=== PATIENT | male | born 1970 | race Caucasian/White ===

== ENCOUNTER 2020-09-29 13:26 | Outpatient (REF) | payer MEDICAID, SELFPAY | END 2020-09-29 13:27 | disposition home or self-care (01) | LOC: HO.LAB 13:26 | PROVIDERS: Visit Provider Internal Medicine | DX: Z20.822 Contact with and (suspected) exposure to COVID-19 (principal) | CPT/HCPCS: 36415; C9803; U0003; U0005 ==

== ENCOUNTER 2020-11-01 09:49 | Outpatient (REF) | payer MEDICAID, SELFPAY ==
[2020-11-01 10:54] LABS: MANUAL DIFF FLAG NO
[2020-11-01 11:07] LABS: Basophils Percent Auto 0.6 % (0-2); Eosinophils Absolute Auto 0.3 X10*3/uL (0.0-0.4); Eosinophils Percent Auto 3.9 % (0-4); Hematocrit 40.9 % (42-52); Hemoglobin 13.2 g/dl (14.0-18.0); Imm Gran Abs Auto 0.02 X10*3/uL (0.00-0.03); Imm Gran Pct Auto 0.3 % (0.0-0.4); Lymphocytes Absolute Auto 1.8 X10*3/uL (1.2-4.9); Lymphocytes Percent Auto 26.6 % (20-40); Mean Corpuscular HGB Conc 32.3 g/dl (31.0-36.0); Mean Corpuscular Hemoglobin 32.4 pg (27.0-33.0); Mean Corpuscular Volume 100.2 fL (80-98); Mean Platelet Volume 10.3 fL (9.4-12.4); Monocytes Absolute Auto 0.6 X10*3/uL (0.1-1.2); Neutrophils Absolute Auto 4.1 X10*3/uL (2.0-8.3); Neutrophils Percent Auto 59.6 % (45-73); Platelet Count 215 X10*3/uL (160-400); Red Blood Count 4.08 X10*6/uL (4.60-5.80); Red Cell Distribution Width 13.5 % (11.0-16.0); White Blood Count 6.9 X10*3/uL (4.8-10.8)
[2020-11-01 11:36] LABS: Alanine Aminotransferase 8 U/L (0-40); Alkaline Phosphatase 96 U/L (39-117); Anion Gap 10 (12-20); Aspartate Amino Transferase 20 U/L (5-37); Bilirubin Total 0.5 mg/dL (0.0-1.0); Blood Urea Nitrogen 11 mg/dL (9-16); Calcium 8.8 mg/dL (8.4-10.2); Carbon Dioxide 28 mmol/L (22-29); Chloride 106 mmol/L (96-108); Estimated Glomerular Filt Rate > 60; Glucose Random 92 mg/dL (60-115); Potassium 4.2 mmol/L (3.3-5.1); Sodium 140 mmol/L (135-145)
[2020-11-02 14:51] LABS: HCV Log PCR <1.18 NOT DETECTED Log IU/mL (NOT DETECTED); HepC Viral Load <15 NOT DETECTED IU/mL (NOT DETECTED)
[2020-11-03 04:14] LABS: Syphilis Screen Nonreactive (Nonreactive)
[2020-11-03 16:12] LABS: Absolute CD3 Count 1363 cells/uL (840-3060); Absolute CD4 Count 148 cells/uL (490-1740); Absolute CD8 Count 1202 cells/uL (180-1170); Absolute Lymphocytes 1877 cells/uL (850-3900); CD4 CD8 Ratio 0.12 (0.86-5.00); Percent CD3 Cells 73 % (57-85); Percent CD4 Cells 8 % (30-61); Percent CD8 Cells 64 % (12-42)
[2020-11-04 12:16] LABS: HIV RNA PCR Qn Copies 94 copies/mL (NOT DETECTED); HIV RNA PCR Qn Log Copies 1.97 (NOT DETECTED)
[2020-11-17 14:12] LABS: HIV Genotype DETECTED
[2020-11-24 15:18] LABS: Value of Last HIV Viral Load 94
== END 2020-11-01 09:50 | disposition home or self-care (01) ==
LOC: HO.LAB 09:49
PROVIDERS: PCP Internal Medicine; Visit Provider Internal Medicine
DX: B20 Human immunodeficiency virus [HIV] disease (principal)
CPT/HCPCS: 36415; 80053; 85025; 86359; 86360; 86780; 87522; 87536; 87900; 87901; 87906

== ENCOUNTER 2020-12-17 08:06 | Emergency (ER) | payer MEDICAID, SELFPAY ==
--- NOTE | ~2020-12-17 | XR_ITS ---
EXAMINATION: XR LUMBOSACRAL SPINE CLINICAL INFORMATION: Status post fall with lower left back pain COMPARISON: June 15, 2019 and February 07, 2019 TECHNIQUE: Three views of the lumbosacral spine. FINDINGS: There are 5 nonrib bearing lumbar vertebra. No acute fracture, spondylolisthesis, or spondylolysis is identified. Disc spaces are maintained. Pedicles intact. No significant sacroiliac joint abnormality is seen. XR/XR lumbar spine 2-3V IMPRESSION: No significant bony abnormality of the lumbar spine identified.
[2020-12-17 08:29] VITALS: BP 129/77; PULSE 78; RESP 16; TEMP 36.8; O2SAT 99; BMI 18.3
--- NOTE | 2020-12-17 10:10 | ED.BACK ---
HPI - Back Pain/Injury General Chief Complaint: Back Pain/Injury Stated Complaint: back pain - fall work related Time Seen by Provider: 12/17/20 08:50 Source: patient Mode of arrival: ambulatory Limitations: no limitations History of Present Illness HPI Narrative: 50-year-old male presenting to the ED with complaints of left lower back pain after he had a mechanical fall yesterday at work landing on cement. Denies head injury or loss of consciousness. MD elicited complaint: back pain, back injury and fall Pertinent past history: recent trauma Onset (ago): day(s) (Yesterday) Timing: constant Severity: moderate Similar Symptoms Previously: No Quality: aching Location: lumbar spine and left lower back Radiation: none Exacerbating factors: movement Relieving factors: none Context: fall Associated symptoms: denies other symptoms Work related injury: Yes Related Data Previous Rx's Medication Instructions Recorded cyclobenzaprine 10 mg PO Q8H #10 tab 12/17/20 naproxen 500 mg PO BID PRN #10 tab 12/17/20 Allergies Allergy/AdvReac Type Severity Reaction Status Date / Time No Known Allergies Allergy Verified 12/17/20 08:29 Review of Systems Review of Systems: Constitutional : No trauma, No Weight loss, No Fever, No Chills, ENT/Mouth : No Hearing loss, No Ear Pain, No Nasal Congestion, No Sinus Pain, No Hoarseness, No sore throat, No Rhinorrhea, No Swallowing Difficulty Cardiovascular : No Chest Pain, No SOB Respiratory : No Cough, No Dyspnea Gastrointestinal : No Nausea, No Vomiting, No Diarrhea, No abdominal Pain, No Hematochezia, No Melena Genitourinary : No Dysuria, No Urinary Frequency, No Hematuria, No Urinary or Bowel Incontinence/retention Musculoskeletal : + Back pain/back injury, No neck pain, No joint stiffness, No joint swelling Skin : No Skin Lesions, No rash or signs of infection Neuro : No Weakness, No radiation, No Numbness, No Paresthesias, No headache, no loss of bowel or bladder incontinence, no saddle anesthesia, Focal weakness, No radiation Denies history of IV drug usage. Yes all other systems are reviewed and are negative PMFSH Past Medical History Attestation statement: The following information was validated with the patient. Medical History No known health problems Social History Social History Advance Directives: Yes Advance Directives Information Provided: Yes Advance Directives on File: No Physical Exam Vital Signs: Vital Signs: Last Vital Signs Temp 98.3 F 12/17/20 08:29 Pulse 78 12/17/20 08:29 Resp 16 12/17/20 08:29 BP 129/77 12/17/20 08:29 Pulse Ox 99 12/17/20 08:29 Body Mass Index 18.3 vital signs have been reviewed as normal and appeared to be correct. Blood pressure normal. Heart rate normal. Respiration rate normal. Temperature normal. Oxygen saturation normal. Appearance: Alert. Oriented X3. No acute distress. Head: Normal external exam. Normocephalic. Atraumatic. No Rosales signs noted. No raccoon eyes noted Eyes: PERRLA. EOMI. Conjunctiva and sclera normal. Eyelids normal. ENT: EAC normal. TM's Normal. Pharynx normal. Uvula midline. Moist mucous membranes. No trismus noted. No drooling noted. No muffled voice noted. Neck: Normal inspection. Neck supple. FROM. No adenopathy. Thyroid Normal. No meningeal signs. No neck mass noted. CVS: Normal heart rate and rhythm. Heart sound normal. No murmurs noted. Pulses normal throughout. Respiratory: No respiratory distress. Painless inspiration. Breath sounds normal. No wheezes/rales/rhonchi noted. Chest nontender. No accessory muscle usage noted or decreased air movement noted. Abdomen: Soft and nontender. Bowel sounds normal in all 4 quadrants. No distention noted. No organomegaly noted. No visible injury noted. Back: No CVA tenderness. Full range of motion noted. No obvious deformities, or edema. Mild para-spinal muscular tenderness from lumbar region to coccyx. Full ROM in back and lower extremities. 5/5 strength hip extension/flexion, abduction, adduction. Mild Lumbar pain with hip flexion against resistance. Straight leg raise test negative on right; Straight leg raise test negative on left; Reflexes normal ankle and knee bilaterally; EHL motor strength normal bilaterally. No rashes/lesion/induration/fluctuance or signs infection noted. Skin: Skin warm and dry. Normal skin color. Normal skin turgor. No rashes/lesions/lacerations noted. Extremities: No lower extremity edema. Extremities exhibit normal range of motion. Extremities nontender. Neuro: Oriented X 3. No motor deficit. No sensory deficit. Reflexes normal. Patient has a normal steady gait. Course Course Course Narrative: Pt c likely muscular pain, but could be herniated disc. Neuro exam shows no deficits. Not c/w AAA/epidural abscess/dissection.No high risk Hx (Incont, fever, immunosupp, recent surgery/LP, coag, wt loss, puls mass, hx/o Ca, TB, or IVDU) to warrant MRI today. Although due to recent fall/trauma will obtain x-rays of lumbar spine to evaluate for any fractures. Not c/w Pyelo/UTI/kidney stone. Not cauda equina syndrome. If imaging negative will DC home with symptomatic treatment along with instructions to return if any new or worsening symptoms to follow up with PCP/Work [facility]. Patient understands agrees with this plan. MDM - Back Pain/Injury Medical Records Attestation: I reviewed the patient's medical records. Imaging Data X-ray of lumbar spine: Attestation: I personally reviewed and interpreted this imaging study as follows: Radiologist's impression: FINDINGS: There are 5 nonrib bearing lumbar vertebra. No acute fracture, spondylolisthesis, or spondylolysis is identified. Disc spaces are maintained. Pedicles intact. No significant sacroiliac joint abnormality is seen. XR/XR lumbar spine 2-3V IMPRESSION: No significant bony abnormality of the lumbar spine identified. Discharge Plan Discharge Clinical Impression: Strain of lumbar region, Fall, Work related injury Patient Disposition: Home, Self-Care Instructions: Low Back Strain (ED), Return to Work Instructions (ED), Lower Back Exercises (ED) Prescriptions: New cyclobenzaprine 10 mg tablet 10 mg PO Q8H Qty: 10 RF: 0 naproxen 500 mg tablet 500 mg PO BID PRN (Reason: pain) Qty: 10 RF: 0 Referrals: [facility] [Provider Group] - 1 day (Follow-up today or tomorrow with work connection to return back to work) Stand Alone Forms: Work/School Release Print Language: Gambian
[2020-12-17] MEDS: Cyclobenzaprine HCl 10 MG TABLET PO (10:30)
[2020-12-17] MEDS: oxyCODONE HCl Immed Release 5 MG TABLET PO (10:30)
[2020-12-17] MEDS: NaPROXEN 500 MG TABLET PO (10:30)
--- NOTE | 2020-12-17 10:38 | PC.NURSE ---
RETURNED FROM IMAGING, AMBULATING W/O ISSUE IN [facility] ROOM 3. MEDICATED PER EMAR, TOLERATING PO W/O ISSUE.
== END 2020-12-17 11:27 | disposition home or self-care (01) ==
PROVIDERS: Emergency Provider Emergency Medicine; PCP Internal Medicine
DX: S39.012A Strain of muscle, fascia and tendon of lower back, initial encounter (principal); W01.0XXA Fall on same level from slipping, tripping and stumbling without subsequent striking against object, initial encounter; Y93.89 Activity, other specified; Y92.63 Factory as the place of occurrence of the external cause; Y99.0 Civilian activity done for income or pay
CPT/HCPCS: 72100; 99283

== ENCOUNTER 2021-05-11 10:01 | Outpatient (REF) | payer MEDICAID, SELFPAY | END 2021-05-11 10:02 | disposition home or self-care (01) | LOC: HO.LAB 10:01 | PROVIDERS: PCP Internal Medicine; Visit Provider Internal Medicine | DX: Z20.822 Contact with and (suspected) exposure to COVID-19 (principal) | CPT/HCPCS: C9803; U0003; U0005 ==

== ENCOUNTER 2021-08-13 09:57 | Outpatient (REF) | payer MEDICAID, SELFPAY ==
--- NOTE | 2021-08-13 16:47 | MHC.AU.ANR ---
Adult Audiological Evaluation Date of Visit: 08/13/21 Reason for Appointment: Audiological evaluation due to concern for decreased hearing and tinnitus. He notes difficulties hearing in most situations, has to turn the TV up, and notes that he often asks for repetition. He reports tinnitus bilaterally, which he notices more at night when it's quiet. He describes that tinnitus as the sound of a chainsaw and feels it is worse in his left ear. 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 He notes that he wears foam earplugs when at work. Does patient feel they have a hearing loss?: Yes If Yes, Which Ear?: Both Ears When Was Hearing Difficulty First Noticed?: A few years ago Has hearing been tested previously?: Yes Previous Hearing Test Results: Notes he had his hearing tested ~15 years ago, but does not remember results Hearing Handicap Inventory: HHIE SCORE: 40 Based on HHIE score, patient has: Severe perceived hearing handicap Ear History: Recent Ear Pain: Both Ears Family History of Hearing Loss?: Yes: Mother Bothersome Tinnitus/Ringing/Noises in Ears: Both Ears Medical History: Medical History: HIV, Headache, Tobacco Use, Opioid dependence, arthralgia Medication List: Biktarvy [id number] daily, Sublocade 300mg/1.5mL injection monthly, Narcan 4mg/actuation PRN, Sublocade 100mg/0.5mL monthly, Seroquel 50 mg daily, Wellbutrin XL 150 mg daily, Nicotine patch, ibuprofen 800 mg 3x daily Otoscopy: Right Ear: Unremarkable Left Ear: Unremarkable Tympanometry: Tympanometry performed due to: Right Ear: Could Not Obtain Seal Left Ear: Could Not Obtain Seal Hearing Evaluation: Transducer(s) Used: Insert Earphones, Bone Conduction Method: Conventional Audiometry Stimuli Used: Pure Tones Right Ear: Description of Hearing: Mild sloping to severe sensorineural hearing loss from 250-8000 Hz. Right ear is worse than the left ear by 15 dBHL at 6000 Hz and 25 dBHL at 8000 Hz. Left Ear: Description of Hearing: Mild sloping to moderately-severe sensorineural hearing loss from 250-8000 Hz. Left ear is worse than the right ear by 10 dBHL at 500 Hz and 15 dBHL at 1000 Hz. Speech Recognition Threshold (SRT): Method Used: Monitored Live Voice Stimuli Used: Spondee Words Right Ear: 45 dBHL Left Ear: 50 dBHL Word Discrimination: Method: Recorded Lists Word Lists Used: NU-6 Right Ear: 84% at 85 dBHL Left Ear: 76% at 90 dBHL Recommendations: Audiological re-evaluation in one year. Trial with amplification is recommended. Medical clearance from a physician is required before fitting. Hearing Aid Fitting will be scheduled when all materials arrive. Mr. Braswell is interested in pursuing hearing aids. Discussed hearing aid options and he indicated that he is interested in recharge ITE style hearing aids. Hearing aids will be ordered once MD clearance is received. Diagnosis: Primary Diagnosis: H90.3 Bilateral Sensorineural Hearing Loss Secondary Diagnosis: H93.13 Tinnitus, Bilateral Services Performed: Services Performed: Comprehensive Audiological Evaluation (CPT 29941) Signature: Provider: Harriet Schroeder, CCC-A
--- NOTE | 2021-08-13 16:50 | MHC.AU.HAS ---
Hearing Aid Evaluation Date of Visit: 08/13/21 Historical Information: Description of Hearing: Mild sloping to moderately-severe/severe sensorineural hearing loss. Current personal amplification information, if applicable: None Summary: Based on the results of today's audiogram, binaural hearing aid use is recommended in order to facilitate improved communication. Discussed hearing styles, options, and technologies. He is interested in rechargeable ITE style hearing aids. Discussed that with his current LG cell phone he will not be able to utilize the Bluetooth capabilities with the Andrez rechargeable aids. He was fine with this and would prefer the rechargeable option over Bluetooth. Hearing Aid Prescription: Based on the individual?s shared listening needs, communication environments, dexterity, desire for connectivity, and personal preferences, the following prescription for amplification has been made: Right ear: Silk Spreader: FileHold Document Management software Model: Evolv AI 1600 ITC-R Battery Size: Rechargeable Color: [place] Left ear: Left ear prescription to be same as Right Hearing Aid above: Silk Spreader: Andrez Model: Evolv AI 1600 ITC-R Battery Size: Rechargeable Color: [place] Plan of Care: Earmold Impressions Taken. Medical Clearance to be requested from PCP/ENT. Hearing Instrument Fitting to be scheduled when materials arrive. Hearing aids will be ordered once MD clearance is received. Primary Diagnosis: H90.3 Bilateral Sensorineural Hearing Loss Secondary Diagnosis: H93.13 Tinnitus, Bilateral Signature: Provider: Harriet Schroeder, CCC-A
--- NOTE | 2021-08-13 16:51 | MHC.AU.MED ---
Medical Clearance for Hearing Instrumentation Date: 08/13/21 Patient Name: Rodriguez Braswell Date of : 1970 Referring Provider: Mary Shah MD We have seen your patient on 08/13/21 and have determined that they are a candidate for amplification (See accompanying report). Specifically, they would benefit from: Hearing aid use in both ears There is a statute that addresses Medical Evaluation Requirements prior to fitting a patient with a hearing aid. According to [place] statute 265 CMR:6.03(1), (a) General. Except as provided in 265 CMR 6.03(1)(b), a reformatory attendant shall not sell a hearing aid unless the prospective user has presented to the reformatory attendant a written statement signed by a licensed physician that states that the patient's hearing loss has been medically evaluated and the patient may be considered a candidate for a hearing aid. The medical evaluation must have taken place within the preceding six months. Please note: Due to the [place] Statute referenced above, we cannot accept a signature other than that of a licensed physician. SENIOR INTERIOR DESIGNER and PA signatures cannot be accepted. I am in agreement with the above recommendation. There is no medical contraindication for hearing instrumentation. Physician Signature Date Physician Name (Printed)
== END 2021-08-13 09:58 | disposition home or self-care (01) ==
LOC: HO.SH 09:57
PROVIDERS: Visit Provider Internal Medicine
DX: Z46.1 Encounter for fitting and adjustment of hearing aid (principal); H90.3 Sensorineural hearing loss, bilateral; H93.13 Tinnitus, bilateral
CPT/HCPCS: 92557; 92591; V5275

== ENCOUNTER 2021-10-01 09:32 | Outpatient (REF) | payer MEDICAID, SELFPAY ==
--- NOTE | ~2021-10-01 | XR_ITS ---
EXAMINATION: XR HAND, RIGHT XR HAND, LEFT CLINICAL INFORMATION: Bilateral hand pain. COMPARISON: Right hand and wrist radiographs dated 04/13/2013 and 04/12/2013. TECHNIQUE: AP, oblique, and lateral views of the right and left hand. FINDINGS: RIGHT HAND: Healed distal 5th metacarpal fracture. No acute fracture or dislocation. No joint space narrowing or marginal osteophytes. No osseous erosion. No perihardware lucency. No abnormal soft tissue calcification. LEFT HAND: No acute fracture or dislocation. Normal carpal alignment. No joint space narrowing or marginal osteophytes. No osseous erosion. No periarticular osteopenia. No abnormal soft tissue calcification. XR/XR hand RT min 3V IMPRESSION: Right hand: No acute osseous abnormality. Healed distal 5th metacarpal fracture. Left hand: Unremarkable examination.
--- NOTE | ~2021-10-01 | XR_ITS ---
EXAMINATION: XR HAND, RIGHT XR HAND, LEFT CLINICAL INFORMATION: Bilateral hand pain. COMPARISON: Right hand and wrist radiographs dated 04/13/2013 and 04/12/2013. TECHNIQUE: AP, oblique, and lateral views of the right and left hand. FINDINGS: RIGHT HAND: Healed distal 5th metacarpal fracture. No acute fracture or dislocation. No joint space narrowing or marginal osteophytes. No osseous erosion. No perihardware lucency. No abnormal soft tissue calcification. LEFT HAND: No acute fracture or dislocation. Normal carpal alignment. No joint space narrowing or marginal osteophytes. No osseous erosion. No periarticular osteopenia. No abnormal soft tissue calcification. XR/XR hand LT min 3V IMPRESSION: Right hand: No acute osseous abnormality. Healed distal 5th metacarpal fracture. Left hand: Unremarkable examination.
== END 2021-10-01 09:33 | disposition home or self-care (01) ==
LOC: HO.XRAY 09:32
PROVIDERS: Absent Provider Internal Medicine; PCP Internal Medicine; Visit Provider Emergency Medicine
DX: M79.641 Pain in right hand (principal); M79.642 Pain in left hand
CPT/HCPCS: 73130

== ENCOUNTER 2021-11-04 08:35 | Outpatient (REF) | payer MEDICAID, SELFPAY | END 2021-11-04 08:36 | disposition home or self-care (01) | LOC: HO.HAP 08:35 | PROVIDERS: Visit Provider Internal Medicine | DX: Z46.1 Encounter for fitting and adjustment of hearing aid (principal); H90.3 Sensorineural hearing loss, bilateral; H93.13 Tinnitus, bilateral | CPT/HCPCS: V5011; V5020; V5160; V5260 ==

== ENCOUNTER → 2021-11-18 10:49 | Outpatient (BNVA) | payer MEDICAID, SELFPAY | PROVIDERS: PCP Internal Medicine; Visit Provider Physician Assistant | DX: G56.03 Carpal tunnel syndrome, bilateral upper limbs (principal); M77.8 Other enthesopathies, not elsewhere classified | CPT/HCPCS: 99202 ==

== ENCOUNTER 2021-11-25 09:24 | Outpatient (REF) | payer MEDICAID, SELFPAY | END 2021-11-25 09:25 | disposition home or self-care (01) | LOC: HO.HAP 09:24 | PROVIDERS: Visit Provider Internal Medicine | DX: Z13.89 Encounter for screening for other disorder (principal) ==

== ENCOUNTER 2021-12-15 09:35 | Outpatient (RCR) | payer MEDICAID, SELFPAY ==
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
--- NOTE | 2022-01-05 09:41 | MHC.OT.DC ---
[address] [phone] F: [phone] Occupational Therapy Discharge Note Provider: Jamaal Kwon PA-C Diagnosis: B/L Hand Pain Date of Evaluation: 12/15/21 Date of Discharge: 01/05/22 Treatments to Date: 1 Cancellations to Date: 1 No Shows to Date: 2 Discharge Status: Visit Non-compliance Discharge Summary: Rodriguez was seen for initial OT assessment of B/L hand pain, however he did not follow up for any of his scheduled treatments. We will be discharging at this time. Electronically Signed By: Juani Baldwin, OTR/L CHT Please Sign and return to therapist, thank you for your referral.
== END 2022-01-05 09:42 | disposition home or self-care (01) ==
LOC: HO.OT 09:35
PROVIDERS: PCP Internal Medicine; Visit Provider Physician Assistant
DX: G56.03 Carpal tunnel syndrome, bilateral upper limbs (principal); M77.8 Other enthesopathies, not elsewhere classified
CPT/HCPCS: 97110; 97165

== ENCOUNTER 2021-12-16 11:18 | Outpatient (REF) | payer MEDICAID, SELFPAY ==
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
== END 2021-12-16 11:19 | disposition home or self-care (01) ==
LOC: HO.MRI 11:18
PROVIDERS: Visit Provider Internal Medicine
DX: G44.85 Primary stabbing headache (principal); B20 Human immunodeficiency virus [HIV] disease; R63.4 Abnormal weight loss
CPT/HCPCS: 70553; A9585

== ENCOUNTER → 2022-01-06 07:44 | Outpatient (BNVA) | payer MEDICAID, SELFPAY | PROVIDERS: PCP Internal Medicine; Referring Provider Internal Medicine; Visit Provider Nurse Practitioner Family | DX: Z12.11 Encounter for screening for malignant neoplasm of colon (principal); K58.2 Mixed irritable bowel syndrome | CPT/HCPCS: 99202 ==

== ENCOUNTER 2022-03-12 09:05 | Day surgery (SDC) | payer MEDICAID, SELFPAY ==
[2022-03-05 14:04] VITALS: BMI 17.4
--- NOTE | 2022-03-11 11:45 | HO.ANESPROP2 ---
HPI - Anesthesia Eval Consult details Narrative: 51yo M for Colonoscopy PMF Active Problems Active Problems: All Active Problems (Updated 03/05/22 @ 14:04 by Franchesca Hess RN) Carpal tunnel syndrome, bilateral (Acute) Left wrist tendonitis (Acute) Right wrist tendonitis (Acute) Past Medical History Medical History BPH (benign prostatic hyperplasia) Hearing loss HIV (human immunodeficiency virus infection) Opioid abuse Family History Family History (Updated 01/06/22 @ 08:13 by Anneliese Calix) Father Eye cancer Mother Diabetes Surgical History Surgical History Surgical history unknown Social History Social History (Updated 01/06/22 @ 08:13 by Anneliese Calix) Household Members: Spouse Alcohol intake: current Alcohol intake frequency: holidays/special occasions only Patient Tobacco Use Status: Current everyday Tobacco user Are you DNR?: No Advance Directives: No Advance Directives Information Provided: Yes Current occupational status: employed Current occupation: Assembler [employer] Meds Allergies Allergy/AdvReac Type Severity Reaction Status Date / Time No Known Allergies Allergy Verified 03/12/22 10:05 Home Medications Medication Instructions Recorded Confirmed Last Taken Type bictegravir 50 mg-emtricitabine 1 tab PO DAILY 01/06/22 03/05/22 Unknown History 200 mg-tenofovir alafenam 25 mg tablet (Biktarvy) bupropion HCl 150 mg 24 hr tablet, 1 tab PO DAILY 03/05/22 03/05/22 Unknown History extended release quetiapine 50 mg tablet 1 tab PO DAILY 03/05/22 03/05/22 Unknown History Exam Exam Date and Time: March 11, 2022 1145 Height,Weight and Vital Signs: Height 5 ft 11 in Weight 56.699 kg Assessment and Plan Assessment Anesthesia Assessment: Chart Reviewed
[2022-03-12] MEDS: Lactated Ringers 1,000 ML 100 ML IVCONT (09:32)
[2022-03-12 09:46] VITALS: BP 133/81; PULSE 82; RESP 18; TEMP 36.3; O2SAT 100
[2022-03-12] MEDS: Sodium Phosphate,Mono-Dibasic 133 ML ENEMA PR (10:17)
--- NOTE | 2022-03-12 10:55 | MHC.SHP ---
Pre-Procedural Eval Section A Date of Service: 03/12/22 The patient is an INPATIENT: No The History & Physical has been completed within 30 days and I have reviewed it.: No Section B Chief Complaint: screening Details of Present Illness: colon cancer screening Relevant Family History (Specify if Yes): No Relevant Social History: Tobacco Use Present Medications: see Short Stay Collaborative assessment Medical History: Significant History (HIV, BPH) History of Previous Operations: No relevant previous surgery Allergies: Allergies Allergy/AdvReac Type Severity Reaction Status Date / Time No Known Allergies Allergy Verified 03/12/22 10:05 Review of Systems Sugical H&P ROS: Negative: Constitution, Cardiovascular, Respiratory and Gastrointestinal Exam Surgical H&P Exam: Normal: Heart, Normal: Lungs, Normal: Extremities and Normal: Abdomen Plan Diagnosis/Plan: Unchanged I have reviewed the history and physical and performed a pertinent physical examination on my patient. No changes have occurred unless specified.
--- NOTE | 2022-03-12 10:59 | P.BOP_ITS ---
Brief Operative Note Date of Service: 03/12/22 Pre-op diagnosis: Colon cancer screening Post-op diagnosis: other (Colon polyps, diverticulosis, hemorrhoids) Procedure: COLONOSCOPY TILL CECUM WITH SNARE POLYPECTOMY Consent: Indications for the procedure and potential complications of bleeding, perforation, reaction to medications and missed diagnosis were discussed with the patient and informed consent was obtained. Instrument: Olympus PCF H 190 L variable stiffness pediatric colonoscope Monitoring: Vital signs and clinical assessment, intermittent blood pressure monitoring, continuous EKG monitoring, Pulse oximetry and Carbon Dioxide monitoring were done throughout the procedure. Colon withdrawl time was 25 minutes. Procedure: The patient was placed in the left lateral decubitis position and pre-procedure medications were administered. After a digital rectal examination of the ano-rectum, the video colonoscope was inserted into the rectum and advanced through the colon to the cecum. The colonoscope was slowly withdrawn in a retrograde panoramic fashion and the colon mucosa was carefully examined including a retroflexed view of the rectum. Findings and interventions are described below. Procedure Difficulty: Without difficulty Findings: Terminal Ileum: Not evaluated Cecum: Normal Ascending Colon: Moderate diverticulosis throughout the colon Transverse Colon: Moderate diverticulosis throughout the colon Descending Colon: Moderate diverticulosis throughout the colon Sigmoid Colon: A 12-15 mm pedunculated polyp removed with a hot snare. Moderate diverticulosis throughout the colon Rectum: Normal Ano-rectum: Moderate internal hemorrhoids Colon preparation: Excellent Impression and Post Procedure Diagnosis: Colonoscopy Findings: One medium sized polyp removed Moderate diverticulosis seen in the entire colon Moderate hemorrhoids on retroflexed exam. Plan: Await pathology results Patient has an appointment on 03/26/22 in the [facility] with Claudia St FNP- [facility] . Repeat Colonoscopy interval based on path results - in 3-5 years if polyps are adenomatous and 10 years if polyps are hyperplastic. Above findings were reviewed with the patient and colon polyps and diverticulos is handouts were given in the discharge area Surgeon: Enrique Martin MD Anesthesia: MAC (Dr Sorto) Was an Administrative Services Assistant used for this Procedure?: Yes Administrative Services Assistant: Kirstin More Estimated blood loss (mL): 0 Pathology: other (A. sigmoid polyp) Condition: stable Disposition: PACU
[2022-03-12 11:33] VITALS: BP 93/58; PULSE 66; RESP 16; TEMP 36.1; O2SAT 98
[2022-03-12 11:48] VITALS: BP 109/65; PULSE 64; RESP 16; TEMP 36.6; O2SAT 100
[2022-03-12 12:03] VITALS: BP 122/67; PULSE 52; RESP 16; TEMP 36.4; O2SAT 99
--- NOTE | 2022-03-12 12:54 | HO.POSTANES ---
Post Anesthesia Evaluation Post Anesthesia Evaluation Vital Signs: Vital Signs Temp Pulse Resp BP Pulse Ox O2 Del Method 03/12/22 12:03 97.5 F 52 16 122/67 99 Room Air 03/12/22 11:48 97.9 F 64 16 109/65 100 Room Air 03/12/22 11:33 97 F 66 16 93/58 L 98 Room Air 03/12/22 09:46 97.4 F 82 18 133/81 100 Room Air Anesthesia: Monitored Mental Status: Awake Pain Control: Satisfactory Nausea/Vomiting: None Hydration: Adequate
--- NOTE | 2022-03-12 16:51 | W.PM.OPN ---
Operative Note Operative Note Date of Service: 03/12/22 Narrative: Pre-op diagnosis: Colon cancer screening Post-op diagnosis:?other (Colon polyps, diverticulosis, hemorrhoids) Procedure: COLONOSCOPY TILL CECUM WITH SNARE POLYPECTOMY Consent: Indications for the procedure and potential complications of bleeding, perforation, reaction to medications and missed diagnosis were discussed with the patient and informed consent was obtained. Instrument: Olympus PCF H 190 L variable stiffness pediatric colonoscope Monitoring: Vital signs and clinical assessment, intermittent blood pressure monitoring, continuous EKG monitoring, Pulse oximetry and Carbon Dioxide monitoring were done throughout the procedure. Colon withdrawl time was 25 minutes. Procedure: The patient was placed in the left lateral decubitis position and pre-procedure medications were administered. After a digital rectal examination of the ano-rectum, the video colonoscope was inserted into the rectum and advanced through the colon to the cecum. The colonoscope was slowly withdrawn in a retrograde panoramic fashion and the colon mucosa was carefully examined including a retroflexed view of the rectum. Findings and interventions are described below. Procedure Difficulty: Without difficulty Findings: Terminal Ileum: Not evaluated Cecum:? Normal Ascending Colon:? Moderate diverticulosis? throughout the colon Transverse Colon:? Moderate diverticulosis? throughout the colon Descending Colon:? Moderate diverticulosis? throughout the colon Sigmoid Colon:? A 12-15 mm pedunculated polyp removed with a hot snare. Moderate diverticulosis? throughout the colon Rectum:? Normal Ano-rectum:? Moderate internal hemorrhoids Colon preparation: Excellent ? Impression and Post Procedure Diagnosis: Colonoscopy Findings: One medium sized polyp removed Moderate diverticulosis seen in the entire colon Moderate hemorrhoids on retroflexed exam. Plan: Await pathology results Patient has an appointment on 03/26/22 in the GI Clinic with Claudia St FNP-BC . Repeat Colonoscopy interval based on path results - in 3-5 years if polyps are adenomatous and 10 years if polyps are hyperplastic. Above findings were reviewed with the patient and colon polyps and diverticulosis handouts were given in the discharge area Surgeon: Enrique Martin MD Anesthesia:?MAC (Dr Sorto) Was an Home Care Administrator used for this Procedure?:?Yes Home Care Administrator:?Kirstin More Estimated blood loss (mL):?0 Pathology:?other (A. sigmoid polyp) Condition:?stable Disposition:?PACU
== END 2022-03-12 12:30 | disposition home or self-care (01) ==
PROVIDERS: PCP Internal Medicine; Visit Provider Internal Medicine Gastroenterology
PROC: 0DJD8ZZ Inspection of Lower Intestinal Tract, Via Natural or Artificial Opening Endoscopic (ICD-10-PCS; CPT 45378; principal; 2022-03-12 10:30)
DX: Z12.11 Encounter for screening for malignant neoplasm of colon (principal); D12.5 Benign neoplasm of sigmoid colon; K57.30 Diverticulosis of large intestine without perforation or abscess without bleeding; K64.8 Other hemorrhoids; K58.9 Irritable bowel syndrome, unspecified; K21.9 Gastro-esophageal reflux disease without esophagitis; N40.0 Benign prostatic hyperplasia without lower urinary tract symptoms; B20 Human immunodeficiency virus [HIV] disease
CPT/HCPCS: 45385; 88305

== ENCOUNTER 2023-06-13 14:11 | Outpatient (REF) | payer MEDICAID, SELFPAY ==
[2023-06-13 16:08] LABS: Appearance Urine Clear; Color Urine Dark Yellow; Glucose Urine UA Negative (Negative); Leukocyte Esterase Urine Trace (Negative); Nitrite Urine Negative (Negative); PH 5.5 (5.0-9.0); Specific Gravity - Urine >= 1.030 (1.005-1.025); UMIC TRIGGER UA YES; Urine Blood Negative (Negative); Urine Ketones Negative (Negative); Urine Protein 30 (1+) mg/dL (Neg-Trace)
[2023-06-13 16:13] LABS: MANUAL DIFF FLAG NO
[2023-06-13 16:17] LABS: Bacteria Urine None Seen (None Seen); Hyaline Casts Urine 0-2 /LPF (0-2); Squamous Epithelial Cell Urine 0-2 /HPF (0-2); WBC Urine 0-5 /HPF (0-5)
[2023-06-13 16:24] LABS: Basophils Absolute Auto 0.1 X10*3/uL (0.0-0.2); Basophils Percent Auto 0.7 % (0-2); Eosinophils Absolute Auto 0.1 X10*3/uL (0.0-0.4); Eosinophils Percent Auto 1.3 % (0-4); Hematocrit 36.8 % (42.0-52.0); Hemoglobin 11.9 g/dl (14.0-18.0); Imm Gran Abs Auto 0.04 X10*3/uL (0.00-0.03); Imm Gran Pct Auto 0.6 % (0.0-0.4); Lymphocytes Absolute Auto 1.8 X10*3/uL (1.2-4.9); Lymphocytes Percent Auto 26.3 % (20-40); Mean Corpuscular HGB Conc 32.3 g/dl (31.0-36.0); Mean Corpuscular Hemoglobin 32.4 pg (27.0-33.0); Mean Corpuscular Volume 100.3 fL (80.0-98.0); Mean Platelet Volume 10.6 fL (9.4-12.4); Monocytes Absolute Auto 0.8 X10*3/uL (0.1-1.2); Monocytes Percent Auto 10.8 % (2-11); Neutrophils Absolute Auto 4.2 x10*3/uL (2.0-8.3); Neutrophils Percent Auto 60.3 % (45-73); Platelet Count 234 X10*3/uL (160-400); Red Blood Count 3.67 X10*6/uL (4.60-5.80); Red Cell Distribution Width 13.8 % (11.0-16.0)
[2023-06-13 16:37] LABS: Alanine Aminotransferase 9 U/L (0-40); Alkaline Phosphatase 69 U/L (39-117); Anion Gap 14 (12-20); Aspartate Amino Transferase 18 U/L (5-37); Bilirubin Total 0.6 mg/dL (0.0-1.0); Blood Urea Nitrogen 12 mg/dL (9-16); Calcium 9.3 mg/dL (8.4-10.2); Carbon Dioxide 24 mmol/L (22-29); Chloride 104 mmol/L (96-108); Estimated Glomerular Filt Rate > 60; Glucose Random 133 mg/dL (60-115); Potassium 3.9 mmol/L (3.3-5.1); Sodium 138 mmol/L (135-145); Total Protein 7.3 g/dL (6.5-8.0)
[2023-06-14 11:09] LABS: Absolute CD3 Count 1241 cells/uL (840-3060); Absolute CD4 Count 158 cells/uL (490-1740); Absolute CD8 Count 1057 cells/uL (180-1170); Absolute Lymphocytes 2104 cells/uL (850-3900); CD4 CD8 Ratio 0.15 (0.86-5.00); Percent CD3 Cells 59 % (57-85); Percent CD4 Cells 7 % (30-61); Percent CD8 Cells 50 % (12-42)
[2023-06-14 18:28] LABS: HIV RNA PCR Qn Copies <20 DETECTED copies/mL (NOT DETECTED); HIV RNA PCR Qn Log Copies <1.30 DETECTED (NOT DETECTED)
[2023-06-15 16:49] LABS: TS Negative Control Passed; TS Panel A 2; TS Panel B 6; TS Positive Control Passed; TSpotTB Borderline (Negative)
[2023-06-15 18:39] LABS: HCV Log PCR <1.18 NOT DETECTED Log IU/mL (NOT DETECTED); HepC Viral Load <15 NOT DETECTED IU/mL (NOT DETECTED)
[2023-06-15 20:18] LABS: RPR Rapid Plasma Reagin NON-REACTIVE (NON-REACTIVE)
== END 2023-06-13 14:12 | disposition home or self-care (01) ==
LOC: HO.HHCL 14:11
PROVIDERS: Visit Provider Internal Medicine
DX: B20 Human immunodeficiency virus [HIV] disease (principal)
CPT/HCPCS: 36415; 80053; 81001; 85025; 86359; 86360; 86481; 86592; 87522; 87536

== ENCOUNTER 2023-06-20 08:32 | Outpatient (REF) | payer MEDICAID, SELFPAY ==
[2023-06-20 12:00] LABS: Cholesterol 194 mg/dL (<200); HDL Cholesterol 78 mg/dL (>40); LDL Cholesterol Calculated 98 mg/dL (<100); Triglycerides 91 mg/dL (<150)
[2023-06-20 13:28] LABS: Reflex LDLD? No
== END 2023-06-20 08:33 | disposition home or self-care (01) ==
LOC: HO.HHCL 08:32
PROVIDERS: Visit Provider Internal Medicine
DX: B20 Human immunodeficiency virus [HIV] disease (principal)
CPT/HCPCS: 36415; 80061

== ENCOUNTER 2024-01-20 14:41 | Outpatient (REF) | payer MEDICAID, SELFPAY ==
[2024-01-20 16:08] LABS: MANUAL DIFF FLAG NO
[2024-01-20 16:32] LABS: Basophils Absolute Auto 0.1 X10*3/uL (0.0-0.2); Basophils Percent Auto 0.9 % (0-2); Eosinophils Absolute Auto 0.1 X10*3/uL (0.0-0.4); Eosinophils Percent Auto 1.4 % (0-4); Hemoglobin 12.1 g/dl (14.0-18.0); Imm Gran Abs Auto 0.03 X10*3/uL (0.00-0.03); Imm Gran Pct Auto 0.4 % (0.0-0.4); Lymphocytes Absolute Auto 3.4 X10*3/uL (1.2-4.9); Lymphocytes Percent Auto 44.3 % (20-40); Mean Corpuscular HGB Conc 33.6 g/dl (31.0-36.0); Mean Corpuscular Hemoglobin 33.6 pg (27.0-33.0); Mean Platelet Volume 10.1 fL (9.4-12.4); Monocytes Absolute Auto 0.6 X10*3/uL (0.1-1.2); Monocytes Percent Auto 7.3 % (2-11); Neutrophils Absolute Auto 3.6 x10*3/uL (2.0-8.3); Neutrophils Percent Auto 45.7 % (45-73); Platelet Count 200 X10*3/uL (160-400); Red Cell Distribution Width 14.5 % (11.0-16.0); White Blood Count 7.8 X10*3/uL (4.8-10.8)
[2024-01-20 17:02] LABS: Alanine Aminotransferase 10 U/L (0-40); Alkaline Phosphatase 78 U/L (39-117); Anion Gap 13 (12-20); Aspartate Amino Transferase 24 U/L (5-37); Bilirubin Total 0.2 mg/dL (0.0-1.0); Blood Urea Nitrogen 15 mg/dL (9-16); Carbon Dioxide 25 mmol/L (22-29); Chloride 111 mmol/L (96-108); Estimated Glomerular Filt Rate > 60; Glucose Random 81 mg/dL (60-115); Potassium 3.9 mmol/L (3.3-5.1); Sodium 145 mmol/L (135-145); Total Protein 7.5 g/dL (6.5-8.0)
[2024-01-21 15:14] LABS: HIV RNA PCR Qn Copies 24 copies/mL (NOT DETECTED); HIV RNA PCR Qn Log Copies 1.38 (NOT DETECTED)
[2024-01-23 08:09] LABS: Absolute CD3 Count 2103 cells/uL (840-3060); Absolute CD4 Count 277 cells/uL (490-1740); Absolute CD8 Count 1820 cells/uL (180-1170); Absolute Lymphocytes 3412 cells/uL (850-3900); CD4 CD8 Ratio 0.15 (0.86-5.00); Percent CD3 Cells 62 % (57-85); Percent CD4 Cells 8 % (30-61); Percent CD8 Cells 53 % (12-42)
== END 2024-01-20 14:42 | disposition home or self-care (01) ==
LOC: HO.HHCL 14:41
PROVIDERS: Visit Provider Internal Medicine
DX: B20 Human immunodeficiency virus [HIV] disease (principal)
CPT/HCPCS: 36415; 80053; 85025; 86359; 86360; 87536

== ENCOUNTER 2024-03-14 17:49 | Emergency (ER) | payer OTHER, SELFPAY ==
[2024-03-14 17:54] VITALS: BP 109/74; PULSE 91; RESP 18; TEMP 36.6; O2SAT 97; BMI 15.4
--- NOTE | 2024-03-14 17:55 | ED.SYNCOPE ---
HPI - Syncope General Chief Complaint: Syncope Stated Complaint: syncope Related Data Home Medications ?Medication ?Instructions ?Recorded ?Confirmed bictegravir 50 mg-emtricitabine 1 tab PO DAILY 01/06/22 03/05/22 200 mg-tenofovir alafenam 25 mg tablet (Biktarvy) bupropion HCl 150 mg 24 hr tablet, 1 tab PO DAILY 03/05/22 03/05/22 extended release quetiapine 50 mg tablet 1 tab PO DAILY 03/05/22 03/05/22 Previous Rx's ?Medication ?Instructions ?Recorded cyclobenzaprine 10 mg tablet 10 mg PO Q8H Muscle spasm #10 tabs 12/17/20 naproxen 500 mg tablet 500 mg PO BID PRN pain #10 tabs 12/17/20 Allergies Allergy/AdvReac Type Severity Reaction Status Date / Time No Known Allergies Allergy Verified 03/14/24 18:04 [facility] Past Medical History Medical History (Updated 03/15/24 @ 14:03 by MIGUEL Anders) Opioid abuse Hearing loss BPH (benign prostatic hyperplasia) HIV (human immunodeficiency virus infection) Surgical History (Updated 03/25/22 @ 15:05 by Kerwin Rouse) Hx of colonoscopy Surgical history unknown Family History Family History (Updated 01/06/22 @ 08:13 by Anneliese Calix) Father Eye cancer Mother Diabetes Social History Social History (Updated 01/06/22 @ 08:13 by Anneliese Calix) Household Members: Spouse Alcohol intake: current Alcohol intake frequency: holidays/special occasions only Patient Tobacco Use Status: Current everyday Tobacco user Advance Directives: No Advance Directives Information Provided: No Do you have a plan to hurt others: No Plan Current occupational status: employed Current occupation: [employer] Physical Exam Vital Signs: Vital Signs: Last Vital Signs Temp 97.8 F 03/14/24 17:54 Pulse 91 03/14/24 17:54 Resp 18 03/14/24 17:54 BP 109/74 03/14/24 17:54 Pulse Ox 97 03/14/24 17:54 O2 Del Method Room Air 03/14/24 17:54 BMI result Body Mass Index 15.4 Course Course Course Narrative: This is an RME: Additional HPI, ROS, PE not included below will be deferred to primary provider. RME assessment and note performed by: April Oates, PA-C This is a [id number], with no known medical problems, who presents to the ER after having a syncopal episode this afternoon. Pt states that he ate [employer] around 10am, and drove to his work and he passed out and was found by his boss in his car who woke him up. He then was told to go home at 1:30PM, and went to his uncles. Reporting some dizziness. No CP or SOB. Reporting a cough. Plan: Labs, EKG, POC glucose Reevaluation(s) Reevaluation #1: Patient left without completing treatment. Discharge Plan Discharge Clinical Impression: Dizziness Patient Disposition: Left W/O Completing Treatment Prescriptions: No Action cyclobenzaprine 10 mg tablet 10 mg PO Q8H Qty: 10 0RF naproxen 500 mg tablet 500 mg PO BID PRN (Reason: pain) Qty: 10 0RF bupropion HCl 150 mg tablet extended release 24 hr 1 tab PO DAILY quetiapine 50 mg tablet 1 tab PO DAILY Biktarvy 50-200-25 mg tablet 1 tab PO DAILY Discharge Date/Time: 03/14/24 20:18
--- NOTE | 2024-03-14 18:28 | MHC.EDTECH ---
Patient was called multiple times foe ekg and blood drawn ,no answer .
== END 2024-03-14 20:18 | disposition left against medical advice (07) ==
PROVIDERS: Emergency Provider Emergency Medicine; PCP Internal Medicine
DX: R42 Dizziness and giddiness (principal); F11.10 Opioid abuse, uncomplicated; B20 Human immunodeficiency virus [HIV] disease; Z53.21 Procedure and treatment not carried out due to patient leaving prior to being seen by health care provider
CPT/HCPCS: 99281

== ENCOUNTER 2024-08-23 12:02 | Outpatient (REF) | payer OTHER, SELFPAY ==
[2024-08-23 13:15] LABS: MANUAL DIFF FLAG NO
[2024-08-23 13:20] LABS: Basophils Absolute Auto 0.1 X10*3/uL (0.0-0.2); Basophils Percent Auto 0.7 % (0-2); Eosinophils Absolute Auto 0.1 X10*3/uL (0.0-0.4); Eosinophils Percent Auto 1.1 % (0-4); Hematocrit 36.5 % (42.0-52.0); Hemoglobin 11.9 g/dl (14.0-18.0); Imm Gran Abs Auto 0.04 X10*3/uL (0.00-0.03); Imm Gran Pct Auto 0.5 % (0.0-0.4); Lymphocytes Absolute Auto 2.4 X10*3/uL (1.2-4.9); Lymphocytes Percent Auto 29.2 % (20-40); Mean Corpuscular HGB Conc 32.6 g/dl (31.0-36.0); Mean Corpuscular Hemoglobin 32.6 pg (27.0-33.0); Mean Platelet Volume 10.1 fL (9.4-12.4); Monocytes Absolute Auto 0.8 X10*3/uL (0.1-1.2); Monocytes Percent Auto 9.2 % (2-11); Neutrophils Absolute Auto 4.9 x10*3/uL (2.0-8.3); Neutrophils Percent Auto 59.3 % (45-73); Platelet Count 259 X10*3/uL (160-400); Red Blood Count 3.65 X10*6/uL (4.60-5.80); Red Cell Distribution Width 14.4 % (11.0-16.0); White Blood Count 8.2 X10*3/uL (4.8-10.8)
[2024-08-23 13:25] LABS: Appearance Urine Clear; Color Urine Yellow; Glucose Urine UA Negative (Negative); Leukocyte Esterase Urine Negative (Negative); Nitrite Urine Negative (Negative); PH 5.5 (5.0-9.0); Specific Gravity - Urine >= 1.030 (1.005-1.025); Urine Blood Negative (Negative); Urine Ketones Negative (Negative); Urine Protein Negative (Neg-Trace)
[2024-08-23 13:35] LABS: Alanine Aminotransferase 14 U/L (0-40); Alkaline Phosphatase 61 U/L (39-117); Anion Gap 8 (12-20); Aspartate Amino Transferase 19 U/L (5-37); Bilirubin Total 0.3 mg/dL (0.0-1.0); Blood Urea Nitrogen 12 mg/dL (9-16); Calcium 9.1 mg/dL (8.4-10.2); Carbon Dioxide 26 mmol/L (22-29); Chloride 108 mmol/L (96-108); Cholesterol 166 mg/dL (<200); Estimated Glomerular Filt Rate > 60; Glucose Random 128 mg/dL (60-115); HDL Cholesterol 54 mg/dL (>40); LDL Cholesterol Calculated 90 mg/dL (<100); Potassium 3.8 mmol/L (3.3-5.1); Sodium 138 mmol/L (135-145); Total Protein 7.1 g/dL (6.5-8.0); Triglycerides 112 mg/dL (<150)
[2024-08-23 13:50] LABS: Reflex LDLD? No
[2024-08-23 14:23] LABS: Bacteria Urine None Seen (None Seen); Hyaline Casts Urine 0-2 /LPF (0-2); RBC Urine 0-2 /HPF (0-2); Squamous Epithelial Cell Urine 0-2 /HPF (0-2); WBC Urine 0-5 /HPF (0-5)
[2024-08-23 14:47] LABS: Syphilis Screen Nonreactive (Nonreactive)
[2024-08-23 15:05] LABS: CT PCR NOT DETECTED (Not Detect.); NG PCR NOT DETECTED (Not Detect.)
[2024-08-23 15:08] LABS: Hepatitis A Antibody IgG Nonreactive (Nonreactive); ~Hepatitis A Antibody IgG 0.31 S/CO (0.00-0.99)
[2024-08-23 15:09] LABS: HBS Num1 0.87 mIU/mL (0-7.99); HBc Num1 0.07 S/CO (0.00-0.79); HBsAGNum1 0.35 S/CO (0.00-0.99); Hepatitis B Core Antibody Nonreactive (Nonreactive); Hepatitis B Surface Antigen Negative (Negative); ~HepC Num1 0.11 S/CO (0.00-0.79); ~Hepatitis B Surface Antibody NONREACTIVE (Nonreactive); ~Hepatitis C Antibody Nonreactive (Nonreactive)
[2024-08-24 12:33] LABS: HIV RNA PCR Qn Copies 60 copies/mL (NOT DETECTED); HIV RNA PCR Qn Log Copies 1.78 (NOT DETECTED)
[2024-08-25 16:08] LABS: Absolute CD3 Count 1656 cells/uL (840-3060); Absolute CD4 Count 218 cells/uL (490-1740); Absolute CD8 Count 1410 cells/uL (180-1170); Absolute Lymphocytes 2606 cells/uL (850-3900); CD4 CD8 Ratio 0.15 (0.86-5.00); Percent CD3 Cells 64 % (57-85); Percent CD4 Cells 8 % (30-61); Percent CD8 Cells 54 % (12-42)
[2024-08-26 16:53] LABS: TS Negative Control Passed; TS Panel A 0; TS Panel B 4; TS Positive Control Passed; TSpotTB Negative (Negative)
== END 2024-08-23 12:03 | disposition home or self-care (01) ==
LOC: HO.HHCL 12:02
PROVIDERS: Visit Provider Internal Medicine
DX: B20 Human immunodeficiency virus [HIV] disease (principal)
CPT/HCPCS: 80053; 80061; 81001; 85025; 86359; 86360; 86481; 86704; 86706; 86708; 86780; 86803; 87340; 87491; 87536; 87591

== ENCOUNTER 2025-03-19 09:26 | Outpatient (REF) | payer MEDICAID, SELFPAY ==
[2025-03-19 11:18] LABS: MANUAL DIFF FLAG NO
[2025-03-19 11:34] LABS: Hematocrit 37.9 % (42.0-52.0); Hemoglobin 12.6 g/dl (14.0-18.0); Imm Gran Abs Auto 0.04 X10*3/uL (0.00-0.03); Imm Gran Pct Auto 0.5 % (0.0-0.4); Lymphocytes Absolute Auto 3.1 X10*3/uL (1.2-4.9); Mean Corpuscular HGB Conc 33.2 g/dl (31.0-36.0); Mean Corpuscular Hemoglobin 32.5 pg (27.0-33.0); Mean Corpuscular Volume 97.7 fL (80.0-98.0); NRBC Abs Auto 0.000 X10*3/uL (0.0-0.012); NRBC Pct Auto 0.0 /100WBC (0.0-0.2); Platelet Count 238 X10*3/uL (160-400); Red Blood Count 3.88 X10*6/uL (4.60-5.80); White Blood Count 8.7 X10*3/uL (4.8-10.8)
[2025-03-19 11:51] LABS: Alanine Aminotransferase 15 U/L (0-40); Albumin Level 4.3 g/dL (3.5-5.0); Alkaline Phosphatase 67 U/L (39-117); Anion Gap 14 (12-20); Aspartate Amino Transferase 27 U/L (5-37); Blood Urea Nitrogen 12 mg/dL (9-16); Calcium 9.1 mg/dL (8.4-10.2); Carbon Dioxide 23 mmol/L (22-29); Chloride 106 mmol/L (96-108); Estimated Glomerular Filt Rate > 60; Potassium 3.5 mmol/L (3.3-5.1); Sodium 139 mmol/L (135-145); Total Protein 7.2 g/dL (6.5-8.0)
[2025-03-20 22:33] LABS: HIV RNA PCR Qn Copies 35 copies/mL (NOT DETECTED); HIV RNA PCR Qn Log Copies 1.54 (NOT DETECTED)
[2025-03-23 17:24] LABS: Absolute CD3 Count 1757 cells/uL (840-3060); Absolute CD8 Count 1566 cells/uL (180-1170); Percent CD3 Cells 62 % (57-85); Percent CD8 Cells 55 % (12-42)
== END 2025-03-19 09:27 | disposition home or self-care (01) ==
LOC: HO.HHCL 09:26
PROVIDERS: PCP Internal Medicine; Visit Provider Internal Medicine
DX: B20 Human immunodeficiency virus [HIV] disease (principal)
CPT/HCPCS: 36415; 80053; 85025; 86359; 86360; 87536